=== PATIENT | male | born 1945 | race Caucasian/White ===

== ENCOUNTER → 2017-01-28 | Outpatient (CLI) | payer MEDICARE, OTHER ==
[~2017-01-28] MED LIST: ACETAMINOPHEN TAB 500 MG TAB PO ONE; LORATADINE 10 MG TAB PO ONE; SODIUM CHLORIDE 0.9% 250 ML in EMPTY BAG 1 BAG IV PRN; SODIUM CHLORIDE 0.9% 500 ML in EMPTY BAG 1 BAG IV PRN
[2017-01-28 07:20] VITALS: RESP 16; TEMP 97.8
[2017-01-28 08:40] VITALS: BP 122/62; PULSE 81
== END ==
LOC: PROCWHC3 07:03
DX: Z51.11 Encounter for antineoplastic chemotherapy (principal); K51.311 Ulcerative (chronic) rectosigmoiditis with rectal bleeding
CPT/HCPCS: 96361; 96413; 96415; J1745

== ENCOUNTER → 2017-03-25 | Outpatient (CLI) | payer MEDICARE, OTHER ==
[2017-03-25 08:06] VITALS: TEMP 98
[2017-03-25 08:07] VITALS: RESP 18
[2017-03-25 08:56] VITALS: BP 124/63; PULSE 68
== END | disposition home or self-care (01) ==
LOC: PROCWHC3 06:58
DX: K51.311 Ulcerative (chronic) rectosigmoiditis with rectal bleeding (principal)
CPT/HCPCS: 96413; 96415; J1745